=== PATIENT | female | born 1965 | race Caucasian/White ===

== ENCOUNTER → 2021-05-04 11:20 | Outpatient (BNVA) | payer MEDICAID, SELFPAY | PROVIDERS: Visit Provider Nurse Practitioner Family | DX: M25.521 Pain in right elbow (principal); M25.522 Pain in left elbow | CPT/HCPCS: 73080 ==

== ENCOUNTER → 2021-05-05 08:58 | Outpatient (BNVA) | payer MEDICAID, SELFPAY | PROVIDERS: Visit Provider Nurse Practitioner Family | DX: E55.9 Vitamin D deficiency, unspecified (principal); E11.65 Type 2 diabetes mellitus with hyperglycemia; I10 Essential (primary) hypertension | CPT/HCPCS: 80053; 80061; 82306; 84443; 85025 ==

== ENCOUNTER → 2021-05-12 11:54 | Outpatient (BNVA) | payer MEDICAID, SELFPAY | PROVIDERS: Visit Provider Nurse Practitioner Family | DX: E11.65 Type 2 diabetes mellitus with hyperglycemia (principal) | CPT/HCPCS: 83036 ==

== ENCOUNTER → 2021-07-05 07:57 | Outpatient (BNVA) | payer MEDICAID, SELFPAY | PROVIDERS: Visit Provider Family Medicine | DX: E04.9 Nontoxic goiter, unspecified (principal); E11.65 Type 2 diabetes mellitus with hyperglycemia; M54.2 Cervicalgia | CPT/HCPCS: 84439; 84443; 86376 ==

== ENCOUNTER 2021-07-06 12:02 | Outpatient (CLI) | payer MEDICAID, SELFPAY ==
--- NOTE | 2021-07-06 12:36 | XR_ITS ---
WS: [id number] XR thoracic spine 3V* [id number] REASON FOR EXAM: E04.9 - Nontoxic goiter, unspecified FINDINGS: Normal thoracic spine alignment. No vertebral body abnormality. Disc spaces of the thoracic spine are intact and well preserved. XR/XR thoracic spine 3V* [id number] IMPRESSION: No significant abnormality.
--- NOTE | 2021-07-06 12:36 | XR_ITS ---
WS: [id number] XR cervical spine 4-5V [id number] REASON FOR EXAM: M54.2 - Cervicalgia FINDINGS: Normal lordosis of the cervical spine. No vertebral body abnormality. Intervertebral disc spaces are relatively well-preserved. Osteophytes at C4-C6. Normal facet joint alignment. No significant narrowing of the neuroforamina by uncinate arthropathy. XR/XR cervical spine 4-5V [id number] IMPRESSION: Mild changes of degenerative spondylosis as above.
== END 2021-07-06 12:03 | disposition home or self-care (01) ==
PROVIDERS: PCP Nurse Practitioner Family; Visit Provider Family Medicine
DX: E04.9 Nontoxic goiter, unspecified (principal); E11.65 Type 2 diabetes mellitus with hyperglycemia; M54.2 Cervicalgia
CPT/HCPCS: 72050; 72072

== ENCOUNTER → 2021-10-18 11:34 | Outpatient (BNVA) | payer MEDICAID, SELFPAY | PROVIDERS: PCP Nurse Practitioner Family; Visit Provider Family Medicine | DX: E11.9 Type 2 diabetes mellitus without complications (principal); M47.812 Spondylosis without myelopathy or radiculopathy, cervical region; M54.2 Cervicalgia; E11.65 Type 2 diabetes mellitus with hyperglycemia | CPT/HCPCS: 83036 ==

== ENCOUNTER → 2021-11-21 13:33 | Outpatient (BNVA) | payer MEDICAID, SELFPAY | PROVIDERS: PCP Nurse Practitioner Family; Visit Provider Family Medicine | DX: R30.0 Dysuria (principal) | CPT/HCPCS: 81000 ==

== ENCOUNTER → 2022-02-14 08:54 | Outpatient (BNVA) | payer MEDICAID, SELFPAY | PROVIDERS: PCP Nurse Practitioner Family; Visit Provider Nurse Practitioner Family | DX: E11.65 Type 2 diabetes mellitus with hyperglycemia (principal); L65.9 Nonscarring hair loss, unspecified; N95.9 Unspecified menopausal and perimenopausal disorder | CPT/HCPCS: 82672; 83036; 84144 ==

== ENCOUNTER → 2022-03-19 15:33 | Outpatient (BNVA) | payer MEDICAID, SELFPAY | PROVIDERS: PCP Nurse Practitioner Family; Visit Provider Nurse Practitioner Family | DX: R30.0 Dysuria (principal) | CPT/HCPCS: 81003 ==

== ENCOUNTER → 2022-05-04 15:16 | Outpatient (BNVA) | payer MEDICAID, SELFPAY | PROVIDERS: PCP Nurse Practitioner Family; Visit Provider Nurse Practitioner Family | DX: R41.82 Altered mental status, unspecified (principal); R30.0 Dysuria | CPT/HCPCS: 81000 ==

== ENCOUNTER → 2022-05-09 10:38 | Outpatient (BNVA) | payer MEDICAID, SELFPAY | PROVIDERS: PCP Nurse Practitioner Family; Visit Provider Family Medicine | DX: N39.0 Urinary tract infection, site not specified (principal); R31.9 Hematuria, unspecified; K52.9 Noninfective gastroenteritis and colitis, unspecified | CPT/HCPCS: 81000; 85025 ==

== ENCOUNTER → 2022-05-23 08:29 | Outpatient (BNVA) | payer MEDICAID, SELFPAY | PROVIDERS: PCP Nurse Practitioner Family; Visit Provider Nurse Practitioner Family | DX: E11.9 Type 2 diabetes mellitus without complications (principal); I10 Essential (primary) hypertension; E11.65 Type 2 diabetes mellitus with hyperglycemia; L65.9 Nonscarring hair loss, unspecified; N95.9 Unspecified menopausal and perimenopausal disorder | CPT/HCPCS: 80053; 80061; 84144 ==